=== PATIENT | female | born 1975 | race Caucasian/White ===

== ENCOUNTER → 2017-08-31 | Outpatient (CLI) | payer OTHER | LOC: M RAD 16:32 | DX: R93.5 Abnormal findings on diagnostic imaging of other abdominal regions, including retroperitoneum (principal); N83.292 Other ovarian cyst, left side; N85.2 Hypertrophy of uterus; Z87.59 Personal history of other complications of pregnancy, childbirth and the puerperium | CPT/HCPCS: 76801 ==

== ENCOUNTER 2017-09-05 04:38 | Emergency (ER) | payer OTHER ==
[2017-09-05 06:26] LABS: HCG, SERUM QUANTITATIVE 1180 MIU/ML
[2017-09-05] MEDS ORDERED: MORPHINE 10 MG/ML 1ML VIAL (J2270) IM (07:15)
[2017-09-05] MEDS ORDERED: ONDANSETRON 4 MG ORAL DISINTEGRATING TAB (Q0162 PER 1MG) PO (07:15)
[2017-09-05 07:34] LABS: BASO # 0.1 10^3/uL (0.0-0.2); BASO % 0.6 % (0.0-1.0); EOS # 0.3 10^3/uL (0.0-0.50); HEMATOCRIT 37.5 % (36.0-47.0); HEMOGLOBIN 12.8 g/dl (12.0-15.5); IMMATURE GRANULOCYTE % 0.3 % (0-3.0); LYMPH % 18.7 % (24.0-44.0); MEAN CORPUSCULAR HEMOGLOBIN 30.9 pg (27.0-33.0); MEAN CORPUSCULAR HGB CONC 34.1 g/dl (32.0-36.5); MEAN CORPUSCULAR VOLUME 90.6 fl (80.0-96.0); MONO # 0.6 10^3/uL (0.0-0.8); MONO % 5.2 % (0.0-5.0); NEUTROPHILS # 7.7 10^3/uL (1.8-7.7); NEUTROPHILS % 72.2 % (36.0-66.0); PLATELET COUNT, AUTOMATED 270 10^3/uL (150-450); RED BLOOD COUNT 4.14 10^6/uL (4.00-5.40); RED CELL DISTRIBUTION WIDTH 12.6 % (11.5-14.5); WHITE BLOOD COUNT 10.6 10^3/uL (4.0-10.0)
[2017-09-05] MEDS: NS 1,000 ML IV (07:45)
[2017-09-05] MEDS: MORPHINE 4 MG/ML 1ML VIAL/SYRINGE (J2270) IV ×2 (07:45→09:29)
[2017-09-05] MEDS: ONDANSETRON 4MG/2ML VIAL (J2405) IV (07:45)
[2017-09-05] MEDS: ONDANSETRON 4 MG ORAL DISINTEGRATING TAB (Q0162 PER 1MG) PO (09:30)
[2017-09-05] MEDS: METHOTREXATE 50MG/2ML VIAL (J9260 PER 50MG) IM (10:20)
== END 2017-09-05 11:26 | disposition home or self-care (01) ==
LOC: M ED 04:38
DX: O09.521 Supervision of elderly multigravida, first trimester (principal); Z88.1 Allergy status to other antibiotic agents
CPT/HCPCS: J2270

== ENCOUNTER → 2017-09-09 | Outpatient (CLI) | payer OTHER ==
[2017-09-09 15:26] LABS: HCG, SERUM QUANTITATIVE 839 MIU/ML
== END ==
LOC: M LAB 10:28
DX: Z34.80 Encounter for supervision of other normal pregnancy, unspecified trimester (principal); Z3A.00 Weeks of gestation of pregnancy not specified
CPT/HCPCS: 84702